=== PATIENT | female | born 1955 | race Caucasian/White ===

== ENCOUNTER 2016-05-30 17:54 | Emergency (ER) | payer OTHER ==
[~2016-05-30] VITALS: Ht 167.6 cm; Wt 55.0 kg
[~2016-05-30 17:54] MED LIST: IBUP600T26 PO; LORTA5 PO; ORPH100T PO; UNKNOWN HTN MED PO; [UNRECOGNIZED DRUG - REMARK] PO
[2016-05-30 18:17] VITALS: BP 173/102; PULSE 98; RESP 18; TEMP 98; O2SAT 99
[2016-05-30] MEDS ORDERED: CYAN100025 SL (19:29)
[2016-05-30] MEDS ORDERED: ORPHENADRINE INJ 60 MG/2 ML AMP IM ONE (20:15)
[2016-05-30] MEDS ORDERED: KETOROLAC TROMETHAMINE 60 MG/2 ML (IM) VIAL IM ONE (20:15)
[2016-05-30] MEDS ORDERED: DEXAMETHASONE SOD PHOS 4 MG/ML VIAL IM ONE (20:15)
--- NOTE | 2016-05-30 20:22 | PD ---
HPI Chief Complaint: Musculoskeletal Complaint Time Seen by Provider: 20:16 Travel History International Travel<30 days: No Contact w/Intl Traveler<30days: No Traveled to known affect area: No History of Present Illness HPI 60-year-old female with a history of chronic back pain since 2003 presents to the emergency room for evaluation of acute exacerbation of sciatica that started yesterday. Patient states she twisted and felt a sharp pain in her right lower back that began shooting down her right lower extremity. States she typically gets sciatica in her left leg but occasionally in the right. She has history of slipped disc in the lower back. She sees primary care physician. Told to take [id number] back medication but does not prescribe narcotics. Pain is worsened with range of motion of the back or any movement. She has been ambulatory since onset of symptoms. Patient denies saddle anesthesia, loss of bowel or bladder control, or lower extremity paresthesias. PFSH Past Medical History Autoimmune Disease: No Blood Disorders: No Cancer: No Cardiovascular Problems: No Diminished Hearing: No Endocrine: No Gastrointestinal Disorders: Yes GERD: Yes Glaucoma: No Genitourinary: No Headaches: Yes Hepatitis: No Hiatal Hernia: No Hypertension: Yes Musculoskeletal: Yes (HERNIATED DISCS, CHRONIC BACK PAIN) Neurologic: Yes Psychiatric: No Reproductive: No Respiratory: No Immunizations Current: Yes Ulcer: No Tetanus Vaccination: Unknown ?: Not Past Surgical History Surgical History: No Previous Surgery Abdominal Surgery: Yes Neurologic Surgery: Yes Other Surgery: Yes Social History Alcohol Use: Yes (BEER, OCCASIONALLY) Tobacco Use: Yes (1 PPD) Substance Use: No Allergies-Medications (Allergen,Severity, Reaction): Coded Allergies: Codeine (Verified Allergy, Severe, 05/30/16) Reported Meds & Prescriptions Reported Meds & Active Scripts Active Ibuprofen 600 Mg Tab 600 Mg PO Q8HR PRN Robaxin (Methocarbamol) 750 Mg Tab 750 Mg PO Q8HR Reported B-12 (Cyanocobalamin) 1,000 Mcg Subl 1,000 Mcg SL DAILY [Unknown Htn Med] 1 Tab PO DAILY [Unknown Stomach Med] 1 Tab PO DAILY Review of Systems Except as stated in HPI: all other systems reviewed are Neg Physical Exam Narrative GENERAL: Well-nourished, well-developed female in no acute distress. Afebrile. Ambulatory. Patient is in back support brace. SKIN: Warm and dry. No erythema or ecchymosis. HEAD: Normocephalic. EYES: No scleral icterus. No injection or drainage. NECK: Supple, trachea midline. No JVD or lymphadenopathy. BACK: No CVA tenderness. No rash. No point tenderness on palpation of the spine. Extremities tenderness to palpation of the right paraspinous musculature and right buttocks. 1+ patellar reflexes equal bilaterally. Data Data Last Documented VS Vital Signs Date Time Temp Pulse Resp B/P Pulse Ox O2 Delivery O2 Flow Rate FiO2 05/30/16 21:17 92 18 115/77 99 Room Air 05/30/16 18:17 98.0 Orders Dexamethasone Inj (Decadron Inj) (05/30/16 20:15) Ketorolac Inj (Toradol Inj) (05/30/16 20:15) Orphenadrine Inj (Norflex Inj) (05/30/16 20:15) MDM Medical Decision Making Medical Screen Exam Complete: Yes Emergency Medical Condition: Yes Medical Record Reviewed: Yes Differential Diagnosis Chronic pain versus back spasm versus sciatica Narrative Course 60-year-old female with a history of chronic low back pain and sciatica presents to the emergency room for evaluation of sciatic exacerbation of the right leg. Pain started yesterday after patient twisted her back. Denies any other trauma. History of slipped disks. No paresthesias. No focal neurological deficits. No midline tenderness. Tenderness to palpation of the right paraspinous musculature and right buttocks. Patellar reflexes 1+ and equal bilaterally. Patient is ambulatory without difficulty. She was given Toradol, Norflex, and Decadron in the emergency room. Discharged with prescriptions for ibuprofen and Robaxin. Told to follow up with a primary care physician or return to the emergency room for worsening symptoms. She understands and agrees to this plan. Diagnosis Primary Impression: Sciatica of right side Referrals: Primary Care Physician Patient Instructions: General Instructions, Sciatica (ED) Additional Instructions: Rest and drink plenty of fluids. Take Robaxin as directed, as needed for pain. Take ibuprofen with food as directed, as needed for pain. Apply ice to the affected area for 20 minutes at a time, as needed for pain and swelling. Follow-up with a primary care physician. Return to the emergency room for worsening symptoms. Med/Other Pt SpecificInfo: Prescription(s) given Scripts Ibuprofen 600 Mg [id number] Mg PO Q8HR PRN (PAIN) #21 TAB Ref 0 Prov:Tio Mahmood MD 05/30/16 Methocarbamol (Robaxin)750 Mg [id number] Mg PO Q8HR #21 TAB Ref 0 Prov:Tio Mahmood MD 05/30/16 Disposition: 01 DISCHARGE HOME Condition: Stable Lidia Yarbrough May 30, 2016 20:22
[2016-05-30] MEDS ORDERED: IBUP-232 PO (20:23)
[2016-05-30] MEDS ORDERED: ROBA750T PO (20:23)
[2016-05-30 21:17] VITALS: BP 115/77; PULSE 92; RESP 18; O2SAT 99
== END 2016-05-30 21:17 | disposition home or self-care (01) ==
LOC: PHED 17:54 → PHEFT 21:17
DX: M54.41 Lumbago with sciatica, right side (principal); F17.210 Nicotine dependence, cigarettes, uncomplicated
CPT/HCPCS: 96372; 99283; J1100; J1885; J2360